=== PATIENT | male | born 1985 | race Caucasian/White ===

== ENCOUNTER 2024-02-29 23:29 | Inpatient (IN) | payer OTHER, SELFPAY ==
[2024-02-29 20:39] VITALS: BP 116/106
[2024-02-29 21:00] VITALS: BP 140/104
--- NOTE | 2024-02-29 21:06 | ED.GENMED ---
History of Present Illness
General
Chief Complaint: Suicidal Ideation
Source: other ([facility], )
Exam Limitations: none
Time Seen by Provider: 02/29/24 20:29
Nursing documentation reviewed up to this point in time: agreed with
History of Present Illness
History of Present Illness:
Patient is a 38-year-old man who was brought in by his after making comments regarding suicide. Prior to arrival, patient took 15 tablets of Coricidin HBP. Patient will not provide any history to me. He appears slightly sleepy yet agitated.
He will not tell me how he got here or why he is here.
Past History
Past History
ED Past Medical History: Psychiatric
ED Past Surgical History: Other
Social History
Tobacco: Other
Alcohol: Occasional
Drug: Other
Personal:
Living: with family
Employment: Other
Family History
Family History: Other
Review of Systems
Review of Systems
Allergies reviewed?: Yes
Other source history: family
All Other Systems: Not applicable
Phy Exam
Physical Exam
Physical Exam:
Physical Exam
General: Patient appears sleepy but agitated. Flat affect. Slow to respond
Neck: supple. Dry mucous membrane
Heart: Appears well-perfused
Lungs: no acute respiratory distress.
Abdomen: Soft
Neuro: alert and oriented. no focal neurological deficits
Skin: no rash
Psychiatric: Drowsy but at times agitated
Extremities: no edema. no calf tenderness. negative homans. good distal pulses
Course
Orders/Labs/Results
Orders:
Orders
02/29/24 20:34
Crisis Consult Urgent
Reason for Consult: SI
02/29/24 20:35
1:1 Observation - Suicide/ Violent Behavior As Directed
02/29/24 20:36
Electrocardiogram (*1) Urgent
Reason for Study: Other
Other Reason for Exam: Potential overdose
Bedside Glucose- Treatment ONCE
Cardiac Monitoring- Treatment ONCE
IV Insert/Care/Rem.- Treatment PRN
Pulse Ox/spot Check [RESP] Urgent
Quantity: 1
02/29/24 20:37
EKG- Treatment ONCE
02/29/24 21:01
Acetaminophen Urgent
Alcohol Urgent
Complete Blood Count/With Diff Urgent
Comprehensive Metabolic Panel Urgent
Salicylate Urgent
Urine Drug Abuse Screen Urgent
Date Specimen was Collected: 02/29/24
Time Specimen was Collected: 20:37
02/29/24 23:00
Flush (0.9% Sodium Chloride) [Flush (Nss)] See Dose Instructions IV PER PROTOCOL
02/29/24 23:14
Admit/Transfer Patient As Directed
Co-Sign Provider:
Level of Care: Inpatient admission
Assign to:: Telemetry
Physician / Group: Janeth
Diagnosis: Intentional Overdose
Reason for Telemetry: Arrhythmia
Date to Stop Telemetry: 03/03/24
Time to Stop Telemetry: 11:00
Reason for Hospitalization: Overdose
Expected length of stay greater than two midnights?: Yes
ELOS- Estimated Length of Stay in days: 3
I certify the patient meets the requirements for IP care: Yes
PRN Pain Medication Management As Directed
May give lesser potent ordered pain med per pt: Yes
preference::
Protocol:: Medication orders for pain may be administered in a
manner that supports deferring to patient preference
when the pt is:
- Requesting an ordered lesser potent pain medication.
Least to most potent pain medications are defined
as: acetaminophen < NSAID < tramadol < opioids
(morphine, oxycodone, hydromorphone).
- Requesting a lesser dose of the same medication IF
ORDERED.
- Requesting a less intrusive route of administration
if both routes are prescribed by the provider (PO <
IV).
02/29/24 23:20
Code Status As Directed
Resuscitation Status: Full Code
03/03/24 11:00
DC Protocol for Telemetry ONCE
Abnormal Lab Results
02/29/24
21:01
Abs Immat Gran (auto) 0.1 H 10^3/uL
(0-0.05)
Absolute Neuts (auto) 7.2 H 10^3/uL
(1.4-6.5)
Immature Gran % 1.0 H %
(0-0.5)
Lymphocytes % 20.3 L %
(20.5-51.1)
Glucose 173 H mg/dl
(70-99)
ALT 61 H U/L
(0-50)
Salicylates < 1.0 L mg/dl
(2.0-20.0)
Acetaminophen < 10 L ug/ml
(10-30)
02/29/24 21:01
02/29/24 21:01
Vital Signs
Initial and Last Documented VS:
Initial Vital Signs
Temp Pulse Resp BP Pulse Ox
98.2 F 114 18 116/106 95
02/29/24 20:39 02/29/24 20:39 02/29/24 20:39 02/29/24 20:39 02/29/24 20:39
Last Documented Vital Signs
Temp Pulse Resp BP Pulse Ox
98.2 F 107 19 140/104 92
02/29/24 20:39 02/29/24 21:15 02/29/24 21:15 02/29/24 21:00 02/29/24 21:15
MDM/Problems Addressed
Differential Diagnosis Includes:
Suicidal attempt, anticholinergic response, Tylenol overdose
MDM/Problems Addressed:
Patient presents for acute suicidal ideations and overdose
Chronic conditions affecting care: Psychiatric illness
Acute Exacerbation and/or Progression of Chronic Illness: Psychiatric illness
*Pulse Oximetry
Patient hypoxic: no
*EKG
Interpreted by ED Provider?: Yes
Interpretation: abnormal
Comparison EKG: no comparison EKG present
Rate: tachycardiac
Rhythm: sinus
[place]: normal axis
Interval: normal interval
QRS Pattern: normal QRS
Ischemia: non-specific ST changes
*Disc Sander Interpretation
Rate: tachycardiac
Interpretation: abnormal
Rhythm: sinus
*Critical Care Note
Total Time (30-74mins, 75-104mins- exclusive of procedures): 45 minutes
comment:
45 minutes critical care given to patient including frequent reassessments of his mental status, reviewing his EKG, speaking to toxicology, [facility] and reviewing his lab work
Data Reviewed
Source: family
Patient Management
Discussion with other providers: Hospitalist and Other (Spoke to field property loss specialist who recommended 6 to 8-hour medical observation for urinary retention, tachycardia, sedation and seizure.)
ED Attending Note
-
Portions of this chart may have been created with voice recognition software.� Occasional wrong word or��sound alike� substitutions may have occurred due to the inherent limitations of voice recognition software.
Discharge Plan
Departure
Patient Disposition: Admit
Date of Disposition: 02/29/24
Time of Disposition: 22:40
Admit to: Telemetry
Presentation/result/management discussed w/ accepting MD/DO: Hospitalist
Patient with high blood pressure during this ER visit?: Yes
Condition: Fair
Covid-19: Not Applicable
Discharge Problem:
Suicidal ideation, Intentional overdose
Interventions
Interventions:
*Risk Screen - Suicide Last Done: 02/29/24 20:28
ED- Fall Risk Assessment Last Done: 02/29/24 21:27
*ED COVID-19 Vaccine History Last Done: 02/29/24 20:28
ED-Psychological Assessment Last Done: 02/29/24 21:27
[2024-02-29 21:08] LABS: % Basophils 0.7 % (0-2); % Eosinophils 0.2 % (0-6); % Lymphocytes 20.3 % (20.5-51.1); % Neutrophils 72.8 % (42.2-75.2); Absolute Basophils 0.1 10^3/uL (0-0.2); Absolute Immature Granulocytes 0.1 10^3/uL (0-0.05); Absolute Monocytes 0.5 10^3/uL (0.1-0.6); Absolute Neutrophils 7.2 10^3/uL (1.4-6.5); Hematocrit 46.9 % (39.0-52.0); Hemoglobin 16.2 g/dL (13.0-18.0); Mean Corp Hgb Conc. 34.5 g/dL (33.0-37.0); Mean Corpuscular Volume 81.1 fL (80.0-94.0); Mean Platelet Volume 8.9 fL (7.4-10.4); Nucleated Red Blood Cells % 0 % (-); Platelet Count 264 10^3/uL (130-400); Red Blood Cell Count 5.78 10^6/uL (4.70-6.10); Red Cell Dist. Width 12.7 % (11.5-14.5); White Blood Cell Count 9.9 10^3/uL (4.8-10.8)
[2024-02-29 21:21] LABS: ALT (SGPT) 61 U/L (0-50); AST (SGOT) 37 U/L (17-59); Acetaminophen < 10 ug/ml (10-30); Albumin 4.7 g/dl (3.5-5.0); Alcohol 131 mg/dl; Alkaline Phosphatase 89 U/L (38-126); Blood Urea Nitrogen 10 mg/dl (9-20); Calcium 9.5 mg/dl (8.4-10.2); Carbon Dioxide 24 mmol/L (22-30); Chloride 107 mmol/L (98-107); Glucose 173 mg/dl (70-99); Potassium 3.8 mmol/L (3.5-5.1); Salicylate < 1.0 mg/dl (2.0-20.0); Sodium 141 mmol/L (135-145); Total Bilirubin 0.5 mg/dl (0.2-1.3); Total Protein 7.4 g/dl (6.3-8.2); eGFR > 60.00
[2024-02-29 21:57] VITALS: BP 162/120
[2024-02-29 22:00] VITALS: BP 166/116
[2024-02-29 22:45] VITALS: BP 154/101
[2024-02-29 22:50] VITALS: BMI 35.4
--- NOTE | 2024-02-29 23:23 | HPS.HSE ---
Family Physician
-
Family Physician: * NONE
Chief Complaint
-
Overdose
History of Present Illness
Patient is a 38 y/o male past medical history of hypertension, hyperlipidemia, anxiety, PTSD and alcohol use disorder who presents following an intentional overdose. Patient was making suicidal comments to his earlier this evening. He
subsequently took 16 Coricidin Cough and Cold tablets, and drank 6 beers. Afterwards EMS was called and he was brought to the emergency department for evaluation. He is now calm and states he feels embarrassed.
Medical History
Past Medical History
Past Medical History: Reports Other
Additional Past Medical History:
Essential Hypertension
Hyperlipidemia
Anxiety
Post-Traumatic Stress Disorder
Alcohol Use Disorder
Past Surgical History: Reports None
Social History
Tobacco: Former Smoker (Quit about 12 years ago)
Alcohol: Binge drinker
Personal:
Living: With Family
Employment: Other (Former )
Family History
Family History: Not pertinent
Allergies / Home Medications
Allergies reflects when Allergies were last updated in [employer].
Home Medications with original date entered in [employer]
Allergy/Medication List:
Allergies
Allergy/AdvReac Type Severity Reaction Status Date / Time
No Known Allergies Allergy Unverified 02/29/24 20:26
Home Medications
chlorthalidone 25 mg tablet 25 mg PO DAILY 02/29/24
cholecalciferol (vitamin D3) 25 mcg (1,000 unit) tablet 25 mcg PO DAILY 02/29/24
ezetimibe 10 mg tablet 10 mg PO DAILY 02/29/24
hydroxyzine HCl 25 mg tablet 25 mg PO DAILYPRN PRN Anxiety 02/29/24
omega 5-gxv-hog-fish oil 1,000 mg (120 mg-180 mg) capsule (Fish Oil) 2 cap PO BID 02/29/24
rosuvastatin 40 mg tablet 40 mg PO DAILY 02/29/24
sertraline 100 mg tablet 150 mg PO DAILY 02/29/24
Review of Systems
-
A 12 point ROS was completed and negative except as noted: Yes
Constitutional: Denies Fever or Chills
Respiratory: Denies Cough or Trouble Breathing
Cardiac: Denies Chest Pain or Palpitations
Physical Exam
Vital Signs
Vital Signs
Temp Pulse Resp BP Pulse Ox
98.2 F 107 19 140/104 92
02/29/24 20:39 02/29/24 21:15 02/29/24 21:15 02/29/24 21:00 02/29/24 21:15
Physical Exam
General: Comfortable and Conversant
HEENT: Anicteric and Moist mucous membranes
Respiratory: Clear and Non Labored Respirations
Cardiac: S1/S2, Regular Rhythm and Tachycardia
GI: Soft and Non Tender
Rectal: Deferred by Provider
Musculoskeletal: No Clubbing, No Cyanosis and No Edema
Skin: Warm and Dry
Neuro: Awake, Alert, Oriented and Nonfocal/grossly intact
Psych: Calm
Laboratory Results
-
02/29/24 21:01
02/29/24 21:01
Laboratory Results
Total Bilirubin 0.5 mg/dl (0.2-1.3) 02/29/24 21:01
AST 37 U/L (17-59) 02/29/24 21:01
ALT 61 U/L (0-50) H 02/29/24 21:01
Alkaline Phosphatase 89 U/L (38-126) 02/29/24 21:01
Data Reviewed
-
Lab Data: Labs Reviewed by me
Impression/Plan
-
Intentional Overdose with chlorpheniramine/dextromethorphan
-Consult Psych
-Continue 1:1 Suicidal Observation
-Monitor heart rate on telemetry
-Monitor for urinary retention with prn bladder scans
-Seizure Precautions
Anxiety / PTSD
-Continue sertraline - Defer medication changes to psych
Essential Hypertension
-Continue chlorthalidone
Hyperlipemia
-Continue ezetimibe and rosuvastatin
Code Status: Full Code
[2024-02-29 23:30] VITALS: BP 146/81
[2024-03-01 00:15] VITALS: BP 147/88
[2024-03-01 01:57] LABS: Amphetamines Negative (Negative); Barbiturates Negative (Negative); Benzodiazepines Negative (Negative); Buprenorphine Negative (Negative); Cocaine Negative (Negative); Marijuana Positive (Negative); Methadone Negative (Negative); Methamphetamines Negative (Negative); Opiates Negative (Negative); Phencyclidine Negative (Negative); Tricyclic Antidepressants Negative (Negative)
[2024-03-01] MEDS: ZOFRAN 4 MG IV (04:24)
--- NOTE | 2024-03-01 05:58 | W.PN.UPDATE ---
Update Note
Progress Note Update
Patient seen in conjunction with SHANON. I concur with the history and physical as well as the assessment and plan as stated.
This is a 38-year-old with past medical history significant for anxiety and PTSD, hypertension who is currently on sertraline and as needed hydroxyzine presents to the emergency department after drinking several cans of beer and taking 16 Coricidin
cough and cold tablets just prior to arrival in the ED. He had discussed suicidal ideation with his spouse the previous day. No known prior suicidal attempt.
In the ED/tachycardic but sleepy and intermittently agitated.
Blood pressure was 140/100, pulse was 107 he was afebrile and oxygen saturation was 90% on room air. ECG shows a sinus tachycardia at [address] or T wave changes.
CBC was unremarkable. Electrolytes were within normal limits. BUN/creatinine were within normal limits. Drug levels of Tylenol on last substance and salicylates were negative. Alcohol was positive. UDS with cannabis.
Assessment and plan
Suspected intentional overdose in patient w/ suicidal ideation. Coricidin tablets contain 4mg of chlorpheniramine and 30mg of dextromethorphan
- per toxicology observe for 8 hours
- telemetry for tachycardia
- neurochecks for sedation level
- bladder scan for urinary retention
- seizure prophylaxis
- 1:1
- psych consult
Other issues
- continue his sertraline and hydroxyine
- continue chlorthalidone and rosuvastatin
DVT PPX w/ SCDs
Code status - full code
--- NOTE | 2024-03-01 07:44 | CM ---
VM received from Crisis making us aware that this patient has a back-up 302 on his chart. Update to MARGARET
[2024-03-01 08:00] VITALS: BP 147/93
--- NOTE | 2024-03-01 08:39 | W.PN.HOSP.TC ---
Today's Communication/Plan
-
Psychiatry consult
Hemoglobin A1c
Assessment / Plan
Assessment / Plan
Gen-AAOx3, NAD
HEENT-NC, AT, anicteric, clear oral mm
Neck-supple
CV-reg, no M, +S1/S2
Lungs-clear B/L
Abd-soft, NT, ND
Ext-no edema
Musculoskeletal-no cyanosis, clubbing
Skin-warm and dry
Neuro-grossly non-focal
Psych-calm, cooperative
Intentional drug overdose -suicide attempt. Hemodynamically stable. Continue monitoring. Await psychiatry input. Tachycardia resolved.
Last bladder scan showed 92 cc. Monitor for now.
Essential hypertension -hypertensive urgency on arrival, improved.
Hyperglycemia -check hemoglobin A1c.
hyperlipidemia -rosuvastatin, Zetia.
Anxiety disorder/PTSD
Alcohol use disorder
Obesity due to excess calories
full code
Anticipated Discharge: Within 24 hours
Subjective/Interval History
-
Date of Service: March 01, 2024
Patient seen and examined. No complaints.
Objective Data
-
Labs:
Laboratory Results
02/29/24
21:01
WBC 9.9
Hgb 16.2
Hct 46.9
Plt Count 264
Sodium 141
Potassium 3.8
Chloride 107
Carbon Dioxide 24
BUN 10
Creatinine 0.9
Glucose 173 H
Calcium 9.5
Total Bilirubin 0.5
AST 37
ALT 61 H
Alkaline Phosphatase 89
Vital Signs:
Vital Signs
Temp Pulse Resp BP Pulse Ox
98.2 F 77 17 147/88 96
02/29/24 20:39 03/01/24 04:30 03/01/24 04:30 03/01/24 00:15 03/01/24 04:30
Review of Systems
-
History Source: Patient
All other systems: Reviewed and negative
[2024-03-01] MEDS: ZETIA 10 MG PO (08:54)
[2024-03-01] MEDS: VITAMIN D3 (cholecalciferol) 25 MCG PO (08:54)
[2024-03-01] MEDS: ZOLOFT 150 MG PO (08:55)
[2024-03-01] MEDS: CRESTOR 40 MG PO (08:55)
[2024-03-01] MEDS: Hygroton 25 MG PO (08:55)
--- NOTE | 2024-03-01 10:48 | PTCARENOTE ---
pt aaox3. states no pain or sob. states he feels embarsed about what he did. pt is calm appropriate and tearful at times. in room with pt. pt is passing urine.
[2024-03-01 12:21] LABS: Glycohemoglobin (HgbA1c) 5.8 % (4.0-5.6)
[2024-03-01 12:26] VITALS: BP 159/102
--- NOTE | 2024-03-01 14:39 | CS.PSYCHR ---
Consult Summary - Psychiatry
-
Pt is 38 yo male with history of chronic PTSD and alcohol use, who presented following an intentional overdose- reportedly took 16 Coricidin Cough and Cold tablets, and drank 6 beers. Afterwards EMS was called and he was brought to the emergency
department for evaluation, stated he felt embarrassed upon exam. Today, pt seen with , reports he feels 'numb', states this is a difficult time of year. Pt has a private therapist of 1 1/2 years, increased frequency of sessions lately. Pt
receives medications through the [email or web address], but has not had his sleep med for the past month. Pt denies active SI today, states he saw how his behavior affected his . 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
seeing human trafficking. Pt states he has had trauma his 'entire life.' BAL on admission 131 02/29/24.
Psych Hx: no inpatient. Outpatient therapy, dx PTSD. Prescribed Zoloft 150 mg QD, Trazodone 50 mg HS, takes Buspar 10 mg as needed
PMH: HTN, HLD
SH: lives with , 's parents, brother- and [id number]. Pt states his mother was addicted to drugs, father not present, no immediate family on his side.
MSE: alert, oriented, cooperative, calm, eyes down-cast, affect tense/preoccupied at times, appropriate. Mood dysphoric, denies active SI. No signs of psychosis. Insight fair, states he would not harm himself upon return home
Imp: PTSD, chronic. Unspecified depression, S/P OD on Coricidin with alcohol
Rec: continue observation, monitor for SI. Dose not appear to need inpatient psychiatric treatment- will reassess tomorrow if pt admitted as planned
Will continue current Zoloft and resume Trazodone (pt educated about the rare risk of Priapism); will follow
--- NOTE | 2024-03-01 14:56 | CM ---
Addendum entered by Jeannette Molina RN 03/01/24 16:31:
Patient is medically ready for discharge to home. No further needs note.
PLAN: home, follow up with outpatient psychiatry.
Original Note:
CM reviewed medical records. On review of psychiatry's note, patient does not need inpatient psychiatric treatment. CM will remain available as needed.
--- NOTE | 2024-03-01 15:18 | W.DS.TRANS ---
DC Summary - [facility]
-
Discharge Instructions:
Discharge Diagnosis/Procedures PTSD, Depression
Diet Low Sodium
Activity As tolerated
Driving Restrictions As prior to admission
Bathing Restrictions None
Instructions:
Stand-Alone Forms:
Changes to Home Medications: No
Discharge Medications:
DC Medications w/original date entered in [facility]
chlorthalidone 25 mg tablet 25 mg PO DAILY Fluid Retention/Swelling 02/29/24
cholecalciferol (vitamin D3) 25 mcg (1,000 unit) tablet 25 mcg PO DAILY Supplement 02/29/24
ezetimibe 10 mg tablet 10 mg PO DAILY High Cholesterol 02/29/24
hydroxyzine HCl 25 mg tablet 25 mg PO DAILYPRN PRN Anxiety 02/29/24
omega 4-pys-spf-fish oil 1,000 mg (120 mg-180 mg) capsule (Fish Oil) 2 cap PO BID High Cholesterol 02/29/24
rosuvastatin 40 mg tablet 40 mg PO DAILY High Cholesterol 02/29/24
sertraline 100 mg tablet 150 mg PO DAILY Depression 02/29/24
trazodone 50 mg tablet 50 mg PO HS #30 tabs 03/01/24
Home Medication Changes
Pending Results: No
--- NOTE | 2024-03-01 17:18 | PTCARENOTE ---
pt discharged with . pt stated he understands he needs to follow up with out pt psy. he states he has an appointment with his consoler tomorrow and his primary this week. in room and confirms the appointment.
== END 2024-03-01 17:19 | disposition home or self-care (01) | DRG 918 ==
LOC: ED 23:29
PROVIDERS: ADMITTING PHYSICIAN Internal Medicine; ATTENDING PHYSICIAN Hospitalist; EMERGENCY PHYSICIAN Emergency Medicine; OTHER PHYSICIAN Psychiatry & Neurology Psychiatry
DX: T50.902A Poisoning by unspecified drugs, medicaments and biological substances, intentional self-harm, initial encounter (principal); Z87.891 Personal history of nicotine dependence; F41.9 Anxiety disorder, unspecified; F43.12 Post-traumatic stress disorder, chronic; I10 Essential (primary) hypertension; E78.5 Hyperlipidemia, unspecified; F10.10 Alcohol abuse, uncomplicated; E66.09 Other obesity due to excess calories; Z68.35 Body mass index [BMI] 35.0-35.9, adult; Z91.51 Personal history of suicidal behavior; F32.A Depression, unspecified; X83.8XXA Intentional self-harm by other specified means, initial encounter
CPT/HCPCS: 80053; 80143; 80179; 80306; 82077; 83036; 85025; 93005; 99291